=== PATIENT | female | born 1995 | race Caucasian/White ===

== ENCOUNTER 2020-09-26 10:46 | Outpatient (REF) | payer BC, SELFPAY ==
[2020-09-26 11:01] LABS: COVID-19 Test Positive (Negative)
== END 2020-09-26 10:47 | disposition home or self-care (01) ==
LOC: HO.LAB 10:46
PROVIDERS: Visit Provider Internal Medicine
DX: Z20.828 Contact with and (suspected) exposure to other viral communicable diseases (principal)
CPT/HCPCS: 87635

== ENCOUNTER 2021-01-25 12:55 | Outpatient (REF) | payer OTHER, SELFPAY ==
[2021-01-25 14:34] LABS: COVID-19 Test Negative (Negative)
== END 2021-01-25 12:56 | disposition home or self-care (01) ==
LOC: HO.EMPCOV 12:55
PROVIDERS: Visit Provider Internal Medicine
DX: Z20.822 Contact with and (suspected) exposure to COVID-19 (principal)
CPT/HCPCS: 36415; 87635; C9803; U0003

== ENCOUNTER 2024-07-30 11:54 | Emergency (ER) | payer OTHER, SELFPAY ==
--- NOTE | ~2024-07-30 | CT_ITS ---
EXAMINATION: CT ABDOMEN AND PELVIS WITH CONTRAST CLINICAL INFORMATION: Abdominal pain COMPARISON: None available. TECHNIQUE: Multidetector volumetric images were obtained from the superior aspect of the liver through the pubic symphysis following administration 85 mL of Omnipaque 350 intravenous contrast. Sagittal and coronal reformatted images were obtained on the technologist's workstation. Oral contrast: No This CT examination was performed using dose optimization techniques as appropriate, variously including the following: *Automated exposure control *Adjustment of mA and/or kV according to patient size (this includes techniques or standardized protocols for targeted exams where dose is matched to indication/reason for exam; i.e. extremities or head) *Use of iterative reconstruction technique DLP: 1018 mGy-cm FINDINGS: LUNG BASES: The visualized lung bases are unremarkable. LIVER, GALLBLADDER, AND BILIARY TREE: The liver is normal in size, shape, and attenuation. No focal hepatic lesion or biliary ductal dilatation is present. The gallbladder is unremarkable with no evidence of radiopaque gallstones, gallbladder wall thickening, or obvious pericholecystic inflammatory changes. PANCREAS: Unremarkable. SPLEEN: Unremarkable. ADRENAL GLANDS: Unremarkable. KIDNEYS AND URETERS: The kidneys are normal in size, shape, and attenuation. No hydronephrosis, hydroureter, or calculi seen. No perinephric stranding. BLADDER: Unremarkable. GASTROINTESTINAL TRACT: The small and large bowel are unremarkable. The appendix is unremarkable. ABDOMINAL WALL: No significant hernia is appreciated. LYMPH NODES: Mild lymphadenopathy right ileocolic mesentery most consistent nonspecific adenitis. VASCULAR: Unremarkable. PELVIC VISCERA: Unremarkable. OSSEOUS STRUCTURES: Unremarkable. CT/CT abdomen pelvis w IV con IMPRESSION: Nonspecific mesenteric adenitis right lower quadrant. No bowel pathology. Normal appendix. Fleischner guidelines were followed. Electronically signed by: Reji Mooney MD 07/30/2024 09:41 PM EDT
[2024-07-30 12:17] VITALS: BP 144/84; PULSE 86; RESP 18; TEMP 37.2; O2SAT 98; BMI 40.4
--- NOTE | 2024-07-30 12:17 | ED_ITS ---
HPI - General Adult General Chief complaint: Abdominal Pain Stated complaint: Nausea Vomiting Abd Pain Time Seen by Provider: 07/30/24 21:03 History of Present Illness ED Provider: Tone JORGENSEN narrative: The patient is a 29-year-old female who has had problems with esophageal reflux for some time. She has been on omeprazole for some time but has recently tried to wean herself off it. As she has been weaning herself off it she has been feeling worse over the last 4 days. Specifically she has had worsening sensation of globus associated with nausea and abdominal discomfort and back discomfort. She says that she feels that the globus sensation is very unpleasant and that it gives her the sensation that she has to swallow a great deal. She thinks that she swallowed too much that this makes her nauseated. She has had no fever. She has had lower abdominal cramping. Partner who was at the bedside the patient has had multiple episodes during the last few days where she has looked extremely uncomfortable for a few hours but then she looks much better soon after. This is alarming and they finally decided to come to the emergency room for evaluation. She reached her nurse practitioner earlier today who recommended famotidine as an alternative to omeprazole. Related Data Previous Rx's ?Medication ?Instructions ?Recorded famotidine 40 mg tablet 40 mg PO DAILY #30 tabs 07/30/24 sucralfate 1 gram tablet 1 g PO TID PRN reflux #60 tabs 07/30/24 Allergies Allergy/AdvReac Type Severity Reaction Status Date / Time sulfamethoxazole Allergy Unknown DOESNT Verified 07/30/24 12:19 [From BACTRIM] REMEMBER SO LONG AGO trimethoprim [From BACTRIM] Allergy Unknown DOESNT Verified 07/30/24 12:19 REMEMBER SO LONG AGO Review of Systems 2 Review of Systems: Yes all other systems are reviewed and are negative PMFSH Social History Social History Advance Directives: No Advance Directives Information Provided: No Do you have a plan to hurt others: No Plan Physical Exam ED Vital Signs: Vital Signs - 24 hr 07/30/24 12:17 Temperature 98.9 F Pulse Rate 86 Respiratory Rate 18 Blood Pressure 144/84 H Pulse Oximetry 98 Oxygen Delivery Method Room Air BMI result Body Mass Index 40.4 Const Other: The patient is awake, alert, pleasant, cooperative. She looks somewhat fatigued but not in acute distress. HENMT Head: Yes normal to inspection Face and sinus: Yes normal facial exam Mouth: Normal oral and palatal mucosa present and moist mucous membranes Throat: Yes posterior oropharynx normal Eyes General: appearance normal, both eyes and all related structures Neck Neck: Yes full ROM and Yes no lymphadenopathy Resp Effort & Inspection: normal respiratory effort Auscultation: clear to auscultation bilaterally Cardio Rate: regular rate Rhythm: regular rhythm Heart sounds: S1 normal heart sound present and S2 normal heart sound present GI Other: The abdomen is soft. She has some generalized diffuse tenderness particularly in the lower quadrants. No focal rebound or guarding. Skin General skin exam: no rashes or lesions noted Neuro Other: The patient is awake and alert with normal mental status. Cranial nerves grossly intact. She moves extremities normally and seems grossly neurologically intact. Extrem General: Yes normal to inspection, Yes full ROM, Yes no pedal edema and Yes no calf tenderness Course Course Course Narrative: RME performed by Leandra Antonio PA-C. Patient is a 29 year old assigned female at presenting to the emergency department with lower abdominal pain, bloating, cramping, and low back pain. Patient states over the last few days she has had lower abdominal pain, back pain, and bloating. Detailed physical exam and review of systems are deferred to the client application support engineer. Labs and swabs ordered. Patient placed back in the waiting room pending room availability and results. Medications Administered Discontinued Medications Generic Name Dose Route Start Last Admin Trade Name Freq PRN Reason Stop Dose Admin Famotidine 20 mg 07/30/24 21:12 07/30/24 21:54 Famotidine/Pf 20 Mg/2 Ml Vial IVPUSH 07/30/24 21:13 20 mg ONCE ONE Administration Sodium Chloride 1,000 mls @ 999 mls/hr 07/30/24 21:30 07/30/24 21:46 Ns IV 07/30/24 22:30 999 mls/hr .Q1H1M CARRIE Administration Iohexol 100 ml 07/30/24 20:47 07/30/24 20:49 Iohexol 350 Mg/Ml 100 Ml Infus..Btl IV 07/30/24 20:48 85 ml ONCE ONE Administration Metoclopramide HCl 10 mg 07/30/24 21:12 07/30/24 21:57 Metoclopramide Hcl 10 Mg/2 Ml Vial IVPUSH 07/30/24 21:13 10 mg ONCE ONE Administration Sucralfate 1 gm 07/30/24 21:12 07/30/24 21:47 Sucralfate Oral Suspension 1 Gm/10 Ml Oral.Susp PO 07/30/24 21:13 1 gm ONCE ONE Administration Medical Decision Making Medical Decision Making [facility] Narrative: The patient is a 29-year-old female who presents with primarily gastrointestinal symptoms. she describes nausea and burping and epigastric discomfort as well as lower abdominal discomfort. She described having several episodes of severe discomfort intermittently over the last 3 or 4 days. The symptoms seemed to be arising in the setting of the patient trying to wean herself from omeprazole. It seems the patient has been on omeprazole for some time and is concerned about possible long-term side effects of omeprazole. Labs and a CT of the abdomen and pelvis had been ordered at triage. a CT the abdomen and pelvis does not show any significant findings aside from possible mesenteric adenitis. Her labs are unremarkable. My overall impression is that most of the patient's significant symptoms are related to problems with gastritis and esophageal reflux. She was given a dose of liquid sober off a which seemed to help a lot. The patient will be discharged with a prescription for from [facility] and for sucralfate tablets. She is advised that she should crush the sucralfate tablets and mix them in water to make a slurry. She should follow up with her regular doctor. I think she should probably be referred to gastroenterology for an upper endoscopy. Lab Data 07/30/24 12:53 07/30/24 12:53 Labs: Lab Results 07/30/24 07/30/24 Range/Units 12:53 14:56 WBC 9.8 (4.8-10.8) X10*3/uL RBC 4.90 (4.20-5.50) X10*6/uL Hgb 15.2 (12.0-16.0) g/dl Hct 42.9 (37.0-47.0) % MCV 87.6 (80.0-98.0) fL MCH 31.0 (27.0-33.0) pg MCHC 35.4 H (31.0-35.0) g/dl RDW 12.2 (11.0-16.0) % Plt Count 241 (160-400) X10*3/uL MPV 9.4 (9.4-12.3) fL Immature Gran % (Auto) 0.3 (0.0-0.4) % Neut % (Auto) 74.5 H (45-73) % Lymph % (Auto) 18.3 L (20-40) % [place] % (Auto) 6.2 (2-11) % Eos % (Auto) 0.4 (0-4) % Baso % (Auto) 0.3 (0-2) % Lymph # (Auto) 1.8 (1.2-4.9) X10*3/uL [place] # (Auto) 0.6 (0.1-1.2) X10*3/uL Eos # (Auto) 0.0 (0.0-0.4) X10*3/uL Baso # (Auto) 0.0 (0.0-0.2) X10*3/uL Abs Immat Gran (auto) 0.03 (0.00-0.03) X10*3/uL Absolute Neuts (auto) 7.3 (2.0-8.3) x10*3/uL Absolute Nucleated RBC 0.000 (0.0-0.012) X10*3/uL Nucleated RBC % (auto) 0.0 (0.0-0.2) /100WBC Sodium 139 (135-145) mmol/L Potassium 3.8 (3.3-5.1) mmol/L Chloride 107 (96-108) mmol/L Carbon Dioxide 23 (22-29) mmol/L Anion Gap 13 (12-20) BUN 13 (9-16) mg/dL Creatinine 0.84 (0.5-1.4) mg/dL Estim Creat Clear Calc 119.9 Estimated GFR > 60 Random Glucose 110 (60-115) mg/dL Calcium 10.4 H (8.4-10.2) mg/dL Magnesium 2.0 (1.6-2.6) mg/dL Total Bilirubin 1.3 H (0.0-1.0) mg/dL AST 19 (5-31) U/L ALT 24 (0-31) U/L Alkaline Phosphatase 50 (39-117) U/L C-Reactive Protein 0.24 (< or = 0.50) mg/dL Total Protein 7.8 (6.5-8.0) g/dL Albumin 4.5 (3.5-5.0) g/dL Beta HCG, Quant < 2 mIU/mL Urine Color Yellow Urine Appearance Clear Urine pH 5.5 (5.0-9.0) Ur Specific [place] 1.015 (1.005-1.025) Urine Protein Negative (Neg-Trace) mg/dL Urine Glucose (UA) Negative (Negative) mg/dL Urine Ketones Trace (Negative) mg/dL Urine Blood Negative (Negative) Urine Nitrite Negative (Negative) Ur Leukocyte Esterase Negative (Negative) Influenza Type A (PCR) NEGATIVE (Negative) Influenza Type B (PCR) NEGATIVE (Negative) RSV RNA Qual (PCR) NEGATIVE (Negative) SARS-CoV-2 RNA (RT-PCR) NEGATIVE (Negative) Discharge Plan Discharge Clinical Impression: Gastroesophageal reflux, Abdominal pain Patient Disposition: Home, Self-Care Additional Instructions: Your testing in the emergency department is reassuring from the point of view of any dangerous process. Your blood tests are unremarkable. The CT scan of your abdomen and pelvis shows a finding of ?mesenteric adenitis. ? This is a benign condition of uncertain origin and is felt to mean very little. I think the primary issue of your symptoms is bad esophageal reflux. Start using the famotidine as an alternative to the omeprazole. In addition you may use the sucralfate up I would recommend crushing the tablet and mixing it up and water to make a slurry. Please contact your regular medical provider's office on Friday to make a follow up appointment for these symptoms and to discuss a referral to Gastroenterology. Return to the emergency room if worse. Prescriptions: New famotidine 40 mg tablet 40 mg PO DAILY Qty: 30 0RF sucralfate 1 gram tablet 1 g PO TID PRN (Reason: reflux) Qty: 60 0RF Referrals: Katelyn Oconnor NP [Primary Care Provider] - (GERD) Interventions: ED Discharge Assessment Last Done: 07/30/24 22:49 Discharge Date/Time: 07/30/24 22:50 Print Language: Kyrgyz
[2024-07-30 12:56] LABS: MANUAL DIFF FLAG NO
[2024-07-30 13:03] LABS: Basophils Percent Auto 0.3 % (0-2); Eosinophils Percent Auto 0.4 % (0-4); Hematocrit 42.9 % (37.0-47.0); Hemoglobin 15.2 g/dl (12.0-16.0); Imm Gran Abs Auto 0.03 X10*3/uL (0.00-0.03); Imm Gran Pct Auto 0.3 % (0.0-0.4); Lymphocytes Absolute Auto 1.8 X10*3/uL (1.2-4.9); Lymphocytes Percent Auto 18.3 % (20-40); Mean Corpuscular HGB Conc 35.4 g/dl (31.0-35.0); Mean Corpuscular Volume 87.6 fL (80.0-98.0); Mean Platelet Volume 9.4 fL (9.4-12.3); Monocytes Absolute Auto 0.6 X10*3/uL (0.1-1.2); Monocytes Percent Auto 6.2 % (2-11); Neutrophils Absolute Auto 7.3 x10*3/uL (2.0-8.3); Neutrophils Percent Auto 74.5 % (45-73); Platelet Count 241 X10*3/uL (160-400); Red Cell Distribution Width 12.2 % (11.0-16.0); White Blood Count 9.8 X10*3/uL (4.8-10.8)
[2024-07-30 13:21] LABS: Alanine Aminotransferase 24 U/L (0-31); Albumin Level 4.5 g/dL (3.5-5.0); Alkaline Phosphatase 50 U/L (39-117); Anion Gap 13 (12-20); Aspartate Amino Transferase 19 U/L (5-31); Bilirubin Total 1.3 mg/dL (0.0-1.0); Blood Urea Nitrogen 13 mg/dL (9-16); Calcium 10.4 mg/dL (8.4-10.2); Carbon Dioxide 23 mmol/L (22-29); Chloride 107 mmol/L (96-108); Creatinine Clr Calc Pharmacy 119.9; Estimated Glomerular Filt Rate > 60; Glucose Random 110 mg/dL (60-115); Potassium 3.8 mmol/L (3.3-5.1); Sodium 139 mmol/L (135-145); Total Protein 7.8 g/dL (6.5-8.0)
[2024-07-30 13:23] LABS: HCG Quantitative < 2 mIU/mL
[2024-07-30 13:36] LABS: Influenza A PCR NEGATIVE (Negative); Influenza B PCR NEGATIVE (Negative); Resp Syncy Virus RNA Qual PCR NEGATIVE (Negative); SARS COV2 PCR INHOUSE NEGATIVE (Negative)
[2024-07-30 15:07] LABS: Appearance Urine Clear; Color Urine Yellow; Glucose Urine UA Negative (Negative); Leukocyte Esterase Urine Negative (Negative); Nitrite Urine Negative (Negative); PH 5.5 (5.0-9.0); Specific Gravity - Urine 1.015 (1.005-1.025); Urine Blood Negative (Negative); Urine Ketones Trace mg/dL (Negative); Urine Protein Negative (Neg-Trace)
[2024-07-30] MEDS: iohexoL 350 MG/ML 100 ML INFUS..BTL IV (20:49)
[2024-07-30 21:32] LABS: C Reactive Protein 0.24 mg/dL (< or = 0.50)
[2024-07-30] MEDS: 0.9 % Sodium Chloride 1,000 ML 999 ML IV (21:46)
[2024-07-30] MEDS: Sucralfate Oral Suspension 1 GM/10 ML ORAL.SUSP PO (21:47)
[2024-07-30] MEDS: Famotidine/PF 20 MG/2 ML VIAL IVPUSH (21:54)
[2024-07-30] MEDS: Metoclopramide HCl 10 MG/2 ML VIAL IVPUSH (21:57)
[2024-07-30 22:49] VITALS: BP 144/84; PULSE 86; RESP 18; TEMP 37.2; O2SAT 98
== END 2024-07-30 22:50 | disposition home or self-care (01) ==
PROVIDERS: Physician Assistant Medical; Emergency Provider Emergency Medicine; PCP Nurse Practitioner Family
DX: K21.9 Gastro-esophageal reflux disease without esophagitis (principal); R10.30 Lower abdominal pain, unspecified; I88.0 Nonspecific mesenteric lymphadenitis; Z03.818 Encounter for observation for suspected exposure to other biological agents ruled out
CPT/HCPCS: 0241U; 74177; 80053; 81003; 83735; 84702; 85025; 86140; 96374; 96375; 99283; 99284; J2765; Q9967